=== PATIENT | female | born 1945 | race Caucasian/White ===

== ENCOUNTER 2023-01-20 18:37 | Inpatient (IN) | payer MEDICARE ==
[~2023-01-20] VITALS: Ht 165.1 cm; Wt 74.8 kg
[2023-01-20 18:51] VITALS: BP 112/89
[2023-01-20 19:26] LABS: BASO % 0.4 % (0.0-1.0); EOS # 0.1 10*3/uL (0.0-0.4); EOS % 0.7 % (1.0-4.0); HEMATOCRIT 41.9 % (37.0-47.0); LYMPH # 2.3 10*3/uL (1.3-4.4); MEAN CELL VOLUME 91.5 fl (81.0-99.0); MEAN CORPUSCULAR HGB 30.6 pg (27.0-31.0); MEAN CORPUSCULAR HGB CONC 33.4 g/dl (33.0-37.0); MONO # 0.7 10*3/uL (0.1-1.0); MONO % 8.1 % (3.0-9.0); NEUT # 5.2 10*3/uL (2.3-7.9); NEUT % 62.7 % (47.0-73.0); PLATELET COUNT AUTOMATED 203 10*3/uL (130-400); RED BLOOD COUNT 4.58 10*6/uL (4.10-5.10); RED CELL DISTRI WIDTH 13.3 % (0-14.5); WHITE BLOOD COUNT 8.3 10*3/uL (4.8-10.8)
[2023-01-20] MEDS ORDERED: RIVASTIGMINE1 EACH T (19:35)
[2023-01-20 19:49] LABS: ALKALINE PHOSPHATASE 88 U/L (46-116); BUN 13 mg/dl (9-23); CHLORIDE 107 mmol/L (98-107); POTASSIUM 3.8 mmol/L (3.4-5.1); SGPT/ALT 10 U/L (10-49); TOTAL PROTEIN 6.8 gm/dL (6.0-8.0)
[2023-01-20 19:50] LABS: ETHYL ALCOHOL < 3.0 mg/dl (<3)
[2023-01-20 20:07] LABS: BILIRUBIN Negative (Negative); BLOOD Negative (Negative); CLARITY Clear (Clear); COLOR Yellow (Yellow); GLUCOSE Trace (Negative); KETONE Trace (Negative); LEUKO ESTERASE Negative (Negative); NITRITE Negative (Negative); SPECIFIC GRAVITY 1.025 (1.001-1.030)
[2023-01-20 20:14] LABS: BACTERIA TRACE; RBC 0-2 rbc/hpf (0-2); URINE AMPHETAMINES Negative (1000ng/ml); URINE BARBITURATES Negative (200ng/ml); URINE BENZODIAZEPINES Negative (200ng/ml); URINE CANNABINOIDS (THC) Negative (50ng/ml); URINE COCAINE Negative (300ng/ml); URINE METHADONE Negative (300ng/ml); URINE OPIATES Negative (300ng/ml); URINE PHENCYCLIDINE Negative (25ng/ml); WBC 0-2 wbc/hpf (0-5)
[2023-01-21 01:09] VITALS: BP 145/67
[2023-01-21 10:25] VITALS: BP 136/64
[2023-01-21 15:24] VITALS: BP 118/72
[2023-01-21 16:16] VITALS: BP 107/80
[2023-01-21] MEDS ORDERED: MYLANTA MAXIMU355 M1 PO (16:51)
[2023-01-21] MEDS ORDERED: CLARITIN10 MG PO (16:51)
[2023-01-21] MEDS ORDERED: ROBITUSSIN DM 101 OZ PO (17:43)
[2023-01-21] MEDS ORDERED: MILK OF MA400 MG/51 PO (17:44)
[2023-01-21] MEDS ORDERED: LOPERAMIDE HCL2 MG PO (17:44)
[2023-01-21] MEDS ORDERED: DULCOLAX5 M1 PO (17:45)
[2023-01-21] MEDS ORDERED: TYLENOL325 M1 PO (17:46)
[2023-01-21] MEDS ORDERED: BAZA ANTIFUNGA142 GM T (17:47)
[2023-01-21 20:00] VITALS: BP 107/80; BP 140/78
[2023-01-21 21:16] VITALS: BP 107/80
[2023-01-22 09:07] VITALS: BP 129/66
[2023-01-22 09:18] LABS: VITAMIN D, 25-HYDROXY 16.9 ng/mL (30-100)
[2023-01-22 20:00] VITALS: BP 147/83
[2023-01-23 08:00] VITALS: BP 140/71
[2023-01-23 20:00] VITALS: BP 112/80
[2023-01-24 07:19] VITALS: BP 139/68
[2023-01-24 19:45] VITALS: BP 127/62
[2023-01-25 07:31] VITALS: BP 104/56
[2023-01-25 20:00] VITALS: BP 112/79
[2023-01-26 07:58] VITALS: BP 126/71
[2023-01-26 20:00] VITALS: BP 123/76
[2023-01-27 07:48] VITALS: BP 108/60
[2023-01-27 20:00] VITALS: BP 131/70
[2023-01-28 07:37] VITALS: BP 144/72
[2023-01-28 20:00] VITALS: BP 126/72
[2023-01-29 07:39] VITALS: BP 128/59
[2023-01-29 20:47] VITALS: BP 119/79
[2023-01-30 07:30] VITALS: BP 135/76
[2023-01-30 20:00] VITALS: BP 126/71
[2023-01-31 01:47] LABS: BILIRUBIN Negative (Negative); BLOOD Negative (Negative); CLARITY Clear (Clear); COLOR Yellow (Yellow); GLUCOSE Negative (Negative); KETONE Trace (Negative); LEUKO ESTERASE Negative (Negative); NITRITE Negative (Negative); PH 7.5 (4.5-8.0); SPECIFIC GRAVITY <= 1.005 (1.001-1.030)
[2023-01-31 01:58] LABS: RBC 0-2 rbc/hpf (0-2); WBC 0-2 wbc/hpf (0-5)
[2023-01-31 07:44] VITALS: BP 137/72
[2023-01-31 20:00] VITALS: BP 124/65
[2023-02-01 07:50] VITALS: BP 140/73
[2023-02-01] MEDS ORDERED: Vitamin D (50,000 UN PO (09:12)
[2023-02-01] MEDS ORDERED: LORAZEPAM1 MG PO (09:12)
[2023-02-01] MEDS ORDERED: B121000 MCG/1 IM (09:12)
[2023-02-01] MEDS ORDERED: MEMANTINE HCL10 MG PO (09:12)
[2023-02-01] MEDS ORDERED: DIVALPROEX SOD125 M1 PO ×2 (09:12)
[2023-02-01] MEDS ORDERED: RIVASTIGMINE1 EAC2 T (09:12)
== END 2023-02-01 19:24 | disposition home or self-care (01) | DRG 883 ==
LOC: ED 18:37 → 3N 01-21 17:01
PROVIDERS: Internal Medicine; ADMIT Psychiatry & Neurology Psychiatry; ATTEND Psychiatry & Neurology Psychiatry
DX: F63.81 Intermittent explosive disorder (principal); N18.31 Chronic kidney disease, stage 3a; F41.1 Generalized anxiety disorder; G30.9 Alzheimer's disease, unspecified; F02.80 Dementia in other diseases classified elsewhere, unspecified severity, without behavioral disturbance, psychotic disturbance, mood disturbance, and anxiety; E78.5 Hyperlipidemia, unspecified; E55.9 Vitamin D deficiency, unspecified; Z91.148 Patient's other noncompliance with medication regimen for other reason; Z79.1 Long term (current) use of non-steroidal anti-inflammatories (NSAID); Z79.899 Other long term (current) drug therapy